=== PATIENT | male | born 1945 | race Caucasian/White ===

== ENCOUNTER 2021-04-03 08:00 | Outpatient (CLI) | payer MEDICARE, BC ==
--- NOTE | 2021-04-03 14:43 | XRAY Report ---
PROCEDURE: Finger(s) LT INDICATIONS: LEFT FINGER DEFORMITY TECHNIQUE: AP hand, 3 views of the left fourth finger(s) acquired. COMPARISON: None FINDINGS: Bones: No fractures or dislocations. Apparent fixed flexion of the left fourth DIP joint. No suspic ious bony lesions. Soft tissues: No suspicious soft tissue calcifications. IMPRESSION: Flexion at the fourth DIP joint without underlying fracture or joint subluxation. Reviewed by: Carline Mayers MD on 04/03/2021 2:42 PM PDT Approved by: Carline Mayers MD on 04/03/2021 2:42 PM PDT Station ID: [id number]
== END 2021-04-03 23:59 | disposition home or self-care (01) ==
LOC: DI.S 08:00
PROVIDERS: ATTEND Emergency Medicine
DX: M20.022 Boutonniere deformity of left finger(s) (principal)